=== PATIENT | male | born 1955 | race Caucasian/White ===

== ENCOUNTER 2017-05-20 19:16 | Emergency (ER) | payer OTHER ==
[2017-05-20] MEDS ORDERED: Morphine 4 MG/ML Carpuject ONE (20:54)
[2017-05-20] MEDS ORDERED: Ketorolac Tromethamine 30 MG/ML VIAL ONE (22:06)
== END 2017-05-20 23:20 | disposition home or self-care (01) ==
LOC: ERS 19:16
DX: M25.532 Pain in left wrist (principal); G89.18 Other acute postprocedural pain; E78.00 Pure hypercholesterolemia, unspecified; E11.9 Type 2 diabetes mellitus without complications
CPT/HCPCS: 96372; J1885; J2270

== ENCOUNTER 2020-01-11 08:45 | Observation (INO) | payer OTHER ==
--- NOTE | 2020-01-11 09:12 | RAD ---
EXAM: Single view of the chest HISTORY: Chest pain COMPARISON: 01/10/2017 FINDINGS: Single view of the chest shows a mildly enlarged but stable cardiomediastinal silhouette. T here is no evidence of consolidation, mass, or pleural effusion. No acute osseous abnormality. IMPRESSION: No evidence of acute cardiopulmonary disease
[2020-01-11 10:04] LABS: #Basophils 0.1 thou/uL (0.0-0.2); #Eosinphils 0.2 thou/uL (0.0-0.7); #Lymphocytes 2.2 thou/uL (1.20-3.40); #Monocytes 0.7 thou/uL (0.11-0.59); #Neutrophils 4.1 thou/uL (1.40-6.50); %Basophils 0.7 % (0.0-1.0); %Eosinophils 2.9 % (0.0-10.0); %Monocytes 10.3 % (0.0-10.0); %Neutrophils 56.2 % (42.0-75.0); Hemoglobin 16.2 g/dL (14.0-18.0); Mean Corpuscular HGB CONC 32.5 g/dL (32.0-36.0); Mean Corpuscular Hemoglobin 30.5 pg (27.0-31.0); Mean Platelet Volume 7.2 fL (7.4-10.4); Platelet Count 298 thou/uL (130-400); RBC Distribution Width 11.5 % (11.5-14.5); Red Blood Cell (RBC) Count 5.29 mill/uL (4.70-6.10); White Blood Cell (WBC) Count 7.2 thou/uL (4.8-10.8)
[2020-01-11 10:27] LABS: ALT (SGPT) 28 U/L (8-55); AST (SGOT) 23 U/L (5-34); Albumin 4.4 g/dL (3.4-4.8); Alkaline Phosphatase 66 U/L (40-110); Anion Gap 15 mmol/L (10-20); BUN (Urea Nitrogen) 26 mg/dL (8.4-25.7); Bilirubin, Total 0.9 mg/dL (0.2-1.2); CK (CPK) 273 U/L (30-200); Calc. Creatinine Clearance 0 mL/min (70-130); Calcium 9.6 mg/dL (7.8-10.44); Carbon Dioxide 23 mmol/L (23-31); Chloride 103 mmol/L (98-107); Estimated GFR-MDRD 76; Globulin 2.8 g/dL (2.4-3.5); Glucose 169 mg/dL (80-115); Lipase 28 U/L (8-78); Potassium 3.9 mmol/L (3.5-5.1); Protein, Total 7.2 g/dL (5.8-8.1); Sodium 137 mmol/L (136-145)
[2020-01-11 10:46] LABS: CKMB 2.8 ng/mL (0-6.6)
[2020-01-11] MEDS ORDERED: Aspirin Chewable 81 MG TAB ONE (11:17)
[2020-01-11] MEDS ORDERED: diphenhydrAMINE 25 MG CAP ONE (11:17)
--- NOTE | 2020-01-11 12:04 | PDOC.HHP ---
Hospitalist HPI - History of Present Illness Chest pain History of Present Illness: PCP: JARAD (Pierce) The patient is a 64-year-old male with a past medical history significant for CAD x2 stents (2014), hypertension, hyperlipidemia, diabetes type 2 and GERD that presents to the emergency department for the above complaint. The patient reports the development of chest pain over the past 2 to 3 days. He reports having 4 episodes this morning. Chest pain is located substernally radiating to his left arm, described as a pressure, exacerbated and relieved by nothing. The episodes last approximately 1 minute. He reports that he had similar pain 5 years ago, with subsequent coronary artery stenting x2. He reports that he is followed by Dr. Bergman, who scheduled a stress test next month. Currently he denies any pain. He denies any associated heart palpitations, swelling to his lower extremities. Denies any associated nausea, vomiting, diarrhea. He has no lightheadedness. He denies any urinary symptoms. He denies recent illness and fever. ED Course: VITAL SIGNS [facility] Jan 11, 2020 08:55 DIDI Nunez Lauren BP: 128/79, Pulse: 57, Resp: 16, Temp: 98 (Oral), Pain: 0, O2 sat: 98 on (Room Air), Time: 01/11/2020 08:55. VITAL SIGNS [facility] Jan 11, 2020 10:03 DIDI Clark Daylee BP: 116/64, MAP: 81, Pulse: 54, Resp: 16, Pain: 0, O2 sat: 97 on (Room Air), Time: 01/11/2020 10:03. VITAL SIGNS [facility] Jan 11, 2020 11:33 DIDI Clark Daylee BP: 116/72, Pulse: 55, Resp: 18, Temp: 97.5 (Oral), Pain: 0, O2 sat: 97 on (Room Air), Time: 01/11/2020 11:33. Medication administration: Ritchie Aspirin 324 mg Oral Given 11:33 01/11/2020 diphenhydrAMINE oral 25 mg Oral Given 11:29 01/11/2020 Hospitalist ROS - Review of Systems All other systems reviewed; all pertinent +/- noted in HPI/Subj - Medication Medications: aspirin oral [facility] Jan 11, 2020 09:14 DIDI Clark Daylee tablet : Strength - 81 mg : ORAL Patient Dose: once a day. atorvastatin WedJan 11, 2020 09:14 DIDI Clark Daylee tablet : Strength - 10 mg : ORAL Patient Dose: Unknown metFORMIN WedJan 11, 2020 09:14 DIDI Clark Daylee tablet : Strength - 500 mg : ORAL Patient Dose: Unknown NERVE PAIN PILL NOT GABAPENTEN WedJan 11, 2020 09:14 DIDI Clark Daylee simvastatin [facility] Jan 11, 2020 11:13 DIDI Jarrett Laine tablet : Strength - 80 mg : ORAL Patient Dose: Unknown naproxen WedJan 11, 2020 11:14 DIDI Jarrett Laine tablet : Strength - 500 mg : ORAL Patient Dose: Unknown omeprazole [facility] Jan 11, 2020 11:14 DIDI Jarrett Laine capsule,delayed release(DR/EC) : Strength - 20 mg : ORAL Patient Dose: Unknown Allergies: aspirin, Brilinta Hospitalist History - Past Medical History Source: patient, RN notes reviewed Cardiac: reports: CAD, Hyperlipidemia Gastrointestinal: reports: GERD Endocrine: reports: Diabetes (type II) - Past Surgical History Past Surgical History: reports: Other (CAD x2 (2015), left arm surgery) - Social History Smoking Status: Former smoker (Quit in 1980) Alcohol: reports: None Drugs: reports: none Living Situation: With Family Occupation: Retired. Activity level: independent ambulation - Exam General Appearance: NAD, awake alert Eye: PERRL ENT: normocephalic atraumatic, moist mucosa Neck: supple, symmetric Heart: RRR, no murmur, no gallops, no rubs, normal peripheral pulses Respiratory: CTAB, no wheezes, no rales, no ronchi, normal chest expansion, no tachypnea Gastrointestinal: soft, non-tender, normal bowel sounds, no bruit, no guarding, no rigidity Extremities: no cyanosis, no edema Skin: no rashes Neurological: normal sensation to touch, no weakness, no focal deficits Musculoskeletal: normal tone, normal strength Psychiatric: normal affect, A&O x 3 Hospitalist Results - Labs Result Diagrams: 01/11/20 09:31 01/11/20 09:31 Lab results: WBC 7.2 thou/uL (4.8-10.8) 01/11/20 09:31 Hgb 16.2 g/dL (14.0-18.0) 01/11/20 09:31 Hct 49.7 % (42.0-52.0) 01/11/20 09:31 MCV 94.0 fL (78.0-98.0) 01/11/20 09:31 Plt Count 298 thou/uL (130-400) 01/11/20 09:31 Neutrophils % 56.2 % (42.0-75.0) 01/11/20 09:31 Sodium 137 mmol/L (136-145) 01/11/20 09:31 Potassium 3.9 mmol/L (3.5-5.1) 01/11/20 09:31 Chloride 103 mmol/L (98-107) 01/11/20 09:31 Carbon Dioxide 23 mmol/L (23-31) 01/11/20 09:31 BUN 26 mg/dL (8.4-25.7) H 01/11/20 09:31 Creatinine 0.99 mg/dL (0.7-1.3) 01/11/20 09:31 Glucose 169 mg/dL (80-115) H 01/11/20 09:31 Calcium 9.6 mg/dL (7.8-10.44) 01/11/20 09:31 Total Bilirubin 0.9 mg/dL (0.2-1.2) 01/11/20 09:31 AST 23 U/L (5-34) 01/11/20 09:31 ALT 28 U/L (8-55) 01/11/20 09:31 Alkaline Phosphatase 66 U/L (40-110) 01/11/20 09:31 Creatine Kinase 273 U/L (30-200) H 01/11/20 09:31 CK-MB (CK-2) 2.8 ng/mL (0-6.6) 01/11/20 09:31 Troponin I 0.185 ng/mL (< 0.028) H 01/11/20 09:31 Serum Total Protein 7.2 g/dL (5.8-8.1) 01/11/20 09:31 Albumin 4.4 g/dL (3.4-4.8) 01/11/20 09:31 Lipase 28 U/L (8-78) 01/11/20 09:31 - EKG Interpretation EK lead EKG interpreted by Emergency Department Physician at time of study, Rate of 51 sinus bradycardia with first-degree AV block. Left axis deviation. Wide QRS at 122 ms. Left ventricular hypertrophy with left atrial enlargement. Normal R wave progression. Normal ST segments and T waves. - Radiology Interpretation Chest x-ray Status: report reviewed by me Additional Comment: IMPRESSION: No evidence of acute cardiopulmonary disease Hospitalist H&P A/P - Problem (1) Chest pain Code(s): R07.9 - CHEST PAIN, UNSPECIFIED Status: Acute (2) Elevated troponin Code(s): R79.89 - OTHER SPECIFIED ABNORMAL FINDINGS OF BLOOD CHEMISTRY Status: Acute (3) Dehydration Code(s): E86.0 - DEHYDRATION Status: Acute (4) DMII (diabetes mellitus, type 2) Status: Chronic (5) CAD (coronary artery disease) Code(s): I25.10 - ATHSCL HEART DISEASE OF [place] CORONARY ARTERY W/O ANG PCTRS Status: Chronic (6) HLD (hyperlipidemia) Code(s): E78.5 - HYPERLIPIDEMIA, UNSPECIFIED Status: Chronic (7) GERD (gastroesophageal reflux disease) Code(s): K21.9 - GASTRO-ESOPHAGEAL REFLUX DISEASE WITHOUT ESOPHAGITIS Status: Chronic - Plan Plan: 64/M with PMH CAD x2 presents for chest pain. Admit to telemetry floor, ob servation status. Expected length of stay less than 2 midnights. #Chest pain Heart score 7, Wells score PE 0. Presented SB, normal BP, normal RR, afebrile EKG sinus bradycardia 57 bpm, first-degree AV block LVH. Troponin 0 0.185, CK-MB 2.8, CK 273 CXR negative for acute process. Given aspirin full dose. Symptoms resolved upon examination. Trend troponins, check TSH, FLP, mag, UA. N.p.o. after midnight. Nuc med cardiac stress test. #Elevated troponin Trend troponin. #Dehydration Mild. BUN 26, creatinine 0.99. Encourage oral intake and give gentle IV fluid hydration. Recheck level in the a.m. #Diabetes type 2 Takes metformin unknown dose. Hold metformin for now. AC/at bedtime Accu-Cheks. Moderate ISS. #CAD Reports stents x2 in 2014. Follow[address] Bergman. Reports scheduled for cardiac stress test next month. Continue aspirin. #Hyperlipidemia Check FLP. Start high intensity statin. #GERD Unknown home medication. Start Protonix. SCDs for DVT prophylaxis. Protonix for GI prophylaxis. Full code. Medical decision maker is Coby (spouse) [phone]. Discussed case with Dr. Tomlinson.
[2020-01-11] MEDS ORDERED: Nitroglycerin 0.4 MG TAB (25 Tab Bottle) SL PRN (12:40)
[2020-01-11] MEDS ORDERED: diphenhydrAMINE 25 MG CAP PO PRN (12:46)
[2020-01-11] MEDS ORDERED: HumaLOG 300 UNITS/3 ML VIAL SC PRN ×2 (12:49)
[2020-01-11] MEDS ORDERED: Dextrose 50% Abboject 50 ML SYRINGE SLOW IVP PRN (12:49)
[2020-01-11] MEDS ORDERED: Dextrose 5% in Water 1,000 ML IV PRN (12:49)
[2020-01-11] MEDS ORDERED: Senokot S 8.6-50 MG TAB PO PRN (12:50)
[2020-01-11] MEDS ORDERED: Calcium Carbonate 500 MG ChewTAB PO PRN (12:50)
[2020-01-11] MEDS ORDERED: Acetaminophen 325 MG TAB PO PRN (12:50)
[2020-01-11] MEDS ORDERED: Ondansetron ODT 4 MG TAB PO PRN (12:50)
[2020-01-11] MEDS ORDERED: Ondansetron PF 4 MG/2 ML Vial IVP PRN (12:50)
[2020-01-11 14:30] LABS: Troponin I 0.136 ng/mL (< 0.028)
[2020-01-11 14:38] VITALS: BMI 36.6
[2020-01-11 18:33] LABS: Troponin I 0.112 ng/mL (< 0.028)
[2020-01-11] MEDS ORDERED: Atorvastatin Calcium 40 MG TAB PO SCH (21:00)
[2020-01-11] MEDS ORDERED: Atorvastatin Calcium 20 MG TAB PO SCH (21:00)
[2020-01-12] MEDS: Sodium Chloride 0.9% 1,000 ML IV SCH ×2 (00:07→08:30)
[2020-01-12 00:27] LABS: Bacteria/HPF None Seen HPF (None Seen); Bilirubin Negative (Negative); Blood, Urine Negative (Negative); Clarity Clear (Clear); Glucose, Urine (Dipstick) 30 mg/dL (Negative); Ketone, Urine Negative (Negative); Leukocyte Negative Leu/uL (Negative); Nitrite Negative (Negative); Protein, Urine (Dipstick) Negative (Neg-Trace); RBC/HPF 0-3 HPF (0-3); Specific Gravity, Urine 1.031 (1.002-1.036); Squamous Epithelial None Seen HPF (0-3); Urobilinogen Normal mg/dL (Less than 2); WBC/HPF 0-3 HPF (0-3); pH, Urine 5.5 (5.0-9.0)
[2020-01-12 05:05] LABS: #Basophils 0.1 thou/uL (0.0-0.2); #Eosinphils 0.3 thou/uL (0.0-0.7); #Monocytes 0.8 thou/uL (0.11-0.59); %Basophils 1.1 % (0.0-1.0); %Lymphocytes 41.9 % (21.0-51.0); %Monocytes 11.1 % (0.0-10.0); Hemoglobin 16.6 g/dL (14.0-18.0); Mean Corpuscular HGB CONC 32.6 g/dL (32.0-36.0); Mean Platelet Volume 6.9 fL (7.4-10.4); Platelet Count 298 thou/uL (130-400); RBC Distribution Width 11.6 % (11.5-14.5); Red Blood Cell (RBC) Count 5.36 mill/uL (4.70-6.10); White Blood Cell (WBC) Count 7.2 thou/uL (4.8-10.8)
[2020-01-12 05:24] LABS: Anion Gap 15 mmol/L (10-20); BUN (Urea Nitrogen) 26 mg/dL (8.4-25.7); Calc. Creatinine Clearance 116 mL/min (70-130); Calcium 9.3 mg/dL (7.8-10.44); Carbon Dioxide 26 mmol/L (23-31); Cardiac Risk 4.1 (Less than 4.5); Chloride 103 mmol/L (98-107); Cholesterol 164 mg/dl (< 200 Desired); Estimated GFR-MDRD 77; Glucose 149 mg/dL (80-115); HDL Cholesterol 40 mg/dL (>60 Neg Risk); LDL Cholesterol, Calculated 91 mg/dL; Potassium 4.7 mmol/L (3.5-5.1); Sodium 139 mmol/L (136-145); Triglycerides 167 mg/dL (Less than 150)
[2020-01-12] MEDS ORDERED: diphenhydrAMINE 25 MG CAP PO SCH (08:30)
[2020-01-12] MEDS ORDERED: Aspirin 325 mg Enteric Coated Tablet PO SCH (09:00)
[2020-01-12] MEDS ORDERED: ADENOSINE 60 MG/20 ML VIAL ONE (09:22)
[2020-01-12 12:47] LABS: SARS-CoV-2 MS2 Positive; SARS-CoV-2 N Gene Negative; SARS-CoV-2 S Gene Negative; SARS-CoV-2 by NAA Not Detected (NotDetected); SARS-CoV-2 orf1ab Negative
--- NOTE | 2020-01-12 15:10 | NM ---
EXAM: CARDIAC SPECT HISTORY: Chest pain, coronary artery disease, status post stent, hypertension, diabetes, hyperlipidem ia TECHNIQUE: A myocardial perfusion scan was performed using the single isotope 1 day protocol with carmen hnetium 99m sestamibi. [10 mCi] was injected intravenously for the rest exam followed by 30 mCi for the stress study. Pharmacologic stress with adenosine was monitored and interpreted by the nurse practitioner. FINDINGS: Homogeneous tracer distribution is seen in the myocardial segments on stress and rest image s without fixed or reversible defects. Gated SPECT LVEF: 63% Wall motion exam: Normal IMPRESSION: Normal myocardial perfusion scan
[2020-01-12 15:41] VITALS: BP 121/70; TEMP 97.8
[2020-01-12] MEDS ORDERED: metFORMIN 500 MG TAB PO SCH (17:00)
--- NOTE | 2020-01-13 03:17 | DIS ---
DATE OF ADMISSION: 01/11/2020 DATE OF DISCHARGE: 01/12/2020 HOSPITAL COURSE: Mr. Reed is a 64-year-old male with a medical history of coronary artery disease status post stent x2 in 2014, hypertension, type 2 diabetes, and GERD, who presented with chest pain. He was diagnosed with noncardiac pain after cardiac workup including a stress test were negative. At the time of discharge, the patient was hemodynamically stable with no chest pain. 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 GENERAL: Lying comfortably in bed. Awake and alert. Morbidly obese. HEENT: Normocephalic, atraumatic. Moist mucosa. HEART: Regular rate and rhythm. No murmurs, gallops, or rubs. Normal peripheral pulses. RESPIRATORY: Clear to auscultation bilaterally. No wheezing, rales or rhonchi. GI: Soft, nontender, nondistended. Normal bowel sounds. EXTREMITIES: No edema. PSYCHIATRIC: Proper mood and affect. Alert and oriented x3. MEDICATION LIST: New medications: 1. Acetaminophen 1000 mg p.o. q.6 p.r.n. for pain. 2. Atorvastatin 40 mg p.o. daily. Discontinued medications: Simvastatin was discontinued. Continued medications: 1. Aspirin. 2. Metformin. 3. Omeprazole. Job ID: [id number]
[2020-01-13] MEDS ORDERED: Aspirin 81 mg Enteric Coated Tablet PO SCH (09:00)
== END 2020-01-12 16:20 | disposition home or self-care (01) ==
LOC: ERS 08:45 → 2SW 12:40
PROVIDERS: ADMIT Internal Medicine; ATTEND Internal Medicine
DX: R07.89 Other chest pain (principal); I25.10 Atherosclerotic heart disease of native coronary artery without angina pectoris; I10 Essential (primary) hypertension; E78.5 Hyperlipidemia, unspecified; E11.9 Type 2 diabetes mellitus without complications; K21.9 Gastro-esophageal reflux disease without esophagitis; R79.89 Other specified abnormal findings of blood chemistry; E86.0 Dehydration; I44.0 Atrioventricular block, first degree; Z87.891 Personal history of nicotine dependence; Z79.82 Long term (current) use of aspirin; Z79.84 Long term (current) use of oral hypoglycemic drugs; Z79.899 Other long term (current) drug therapy; Z88.6 Allergy status to analgesic agent; Z88.8 Allergy status to other drugs, medicaments and biological substances; Z95.5 Presence of coronary angioplasty implant and graft; Z20.828 Contact with and (suspected) exposure to other viral communicable diseases
CPT/HCPCS: 36415; 36416; 71045; 78452; 80048; 80053; 80061; 81001; 82550; 82553; 83690; 83735; 83880; 84443; 84484; 85025; 87635; 93005; 93017; 94760; A9500; G0378; J0153; Q0163; U0003